=== PATIENT | male | born 1995 | race African-American/Black ===

== ENCOUNTER 2018-02-15 17:03 | Emergency (ER) | payer OTHER ==
[~2018-02-15] VITALS: Ht 167.6 cm; Wt 64.2 kg
[2018-02-15 18:47] LABS: BASOPHIL (%) 0.5 % (0-1); BASOPHIL COUNT 0.1 K/uL (0-0.1); EOSINOPHIL (%) 2.9 % (0-5); EOSINOPHIL COUNT 0.3 K/uL (0-0.3); HEMATOCRIT 26.4 % (38.0-50.0); HEMOGLOBIN 9.6 G/DL (12.5-16.6); IMMATURE GRANULOCYTE (%) 0.3 % (0.0-0.7); LYMPHOCYTE (%) 48.3 % (15-42); MCH 31.5 PG (29.0-34.0); MCHC 36.4 G/DL (30.0-36.0); MCV 86.6 FL (86-99); MONOCYTE COUNT 1.3 K/uL (0-0.8); NEUTROPHIL COUNT 3.6 K/uL (1.8-6.4); NRBC (%) 0.4 /100 WBC (0-0); PLATELET COUNT 433 K/uL (156-360); RBC DIS.WIDTH-CV 15.2 % (11.8-14.6); RED BLOOD COUNT 3.05 M/uL (4.00-5.50); WHITE BLOOD COUNT 10.3 K/uL (4.1-10.2)
[2018-02-15 18:48] LABS: CHLORIDE 105 mEq/L (99-109); POTASSIUM 4.1 mEq/L (3.7-5.4); SODIUM 137 mEq/L (136-147)
[2018-02-15 18:50] LABS: GLUCOSE 89 mg/dL (70-99)
[2018-02-15 18:53] LABS: CREATININE 0.6 mg/dL (0.6-1.3)
[2018-02-15 18:54] LABS: UREA NITROGEN (BUN) 11 mg/dL (9-23)
[2018-02-15 19:11] LABS: IMM.RETIC FRACTION 20.6 % (3-19); RETIC HGB EQUIVALENT 29.5 (28-36); RETICULOCYTE COUNT 11.1 % (0.5-1.8)
[2018-02-15 19:18] LABS: GFR ESTIMATE (CALCULATED) > 59 mL/min/ (58.99-99999)
[2018-02-15 21:49] VITALS: BP 122/62
== END 2018-02-15 21:50 | disposition left against medical advice (07) ==
LOC: RME 17:03 → EME 17:03 → RME 21:50
PROVIDERS: Physician Assistant
DX: D57.1 Sickle-cell disease without crisis (principal); Z53.20 Procedure and treatment not carried out because of patient's decision for unspecified reasons
CPT/HCPCS: 80048; 85025; 85046; 99281; 99284; J1885; J3010; J7030; J7050